=== PATIENT | male | born 1960 | race Caucasian/White ===

== ENCOUNTER 2021-07-31 20:13 | Emergency (ER) | payer MEDICARE, MEDICAID ==
[2021-07-31] MEDS ORDERED: Boostrix 0.5 ML (Tdap) VIAL ONE (22:35)
[2021-07-31] MEDS ORDERED: HYDROcodone/Acetaminophen 10/325 mg Tablet ONE (22:35)
== END 2021-07-31 23:35 | disposition home or self-care (01) ==
LOC: ERS 20:13
DX: S92.412A Displaced fracture of proximal phalanx of left great toe, initial encounter for closed fracture (principal); S92.512A Displaced fracture of proximal phalanx of left lesser toe(s), initial encounter for closed fracture; W31.82XA Contact with other commercial machinery, initial encounter; Y99.0 Civilian activity done for income or pay; F17.210 Nicotine dependence, cigarettes, uncomplicated; Z23 Encounter for immunization
CPT/HCPCS: 90471; 90715